=== PATIENT | female | born 1975 | race Caucasian/White ===

== ENCOUNTER 2017-01-19 16:56 | Emergency (ER) | payer BC ==
[2017-01-19] MEDS ORDERED: Ketorolac 60 MG/2 ML SDV IM ONE (17:10)
--- NOTE | 2017-01-19 17:43 | EDM.PDOC ---
ED HPI GENERAL MEDICAL PROBLEM - General Chief Complaint: Lower Extremity Injury/Pain Stated Complaint: PAIN RT FOOT/ TOE Time Seen by Provider: 01/19/17 17:00 Source of Information: Reports: Patient History Limitations: Reports: No Limitations - History of Present Illness INITIAL COMMENTS - FREE TEXT/NARRATIVE: History of present illness: [41-year-old female presenting with acute onset of trauma to right foot. Patient she slammed her right foot into a chair and subsequently had her fifth digit go lateral to her foot she's uncertain if she broke the pinky toe or actually further deeper into her foot and would like it evaluated. Patient indicates she is having a pain of 4 out of 10 and usually she walks around pain- free.] Review of systems: As per history of present illness and below otherwise all systems reviewed and negative. Past medical history: As per history of present illness and as reviewed below otherwise noncontributory. Surgical history: As per history of present illness and as reviewed below otherwise noncontributory. Social history: No reported history of drug or alcohol abuse. Family history: As per history of present illness and as reviewed below otherwise noncontributory. Physical exam: HEENT: Atraumatic, normocephalic, pupils reactive, negative for conjunctival pallor or scleral icterus, mucous membranes moist, throat clear, neck supple, nontender, trachea midline. Lungs: Clear to auscultation, breath sounds equal bilaterally, chest nontender. Heart: S1S2, regular, negative for clicks, rubs, or JVD. Abdomen: Soft, nondistended, nontender. Negative for masses or hepatosplenomegaly. Negative for costovertebral tenderness. Pelvis: Stable nontender. Genitourinary: Deferred. Rectal: Deferred. Extremities: Right foot with fifth digit slightly swollen and erythematous without deformity, negative for cords or calf pain. Neurovascular unremarkable. Neuro: Awake, alert, oriented. Cranial nerves II through XII unremarkable. Cerebellum unremarkable. Motor and sensory unremarkable throughout. Exam nonfocal. X-ray of the foot reflected: Slightly comminuted nondisplaced fracture of the mid to distal diaphysis of the proximal phalanx little toe. Questionable extension to the distal articular surface Diagnostics: [X-ray of right foot] Therapeutics: [] Impression: [Fractured fifth digit] Plan: [Walking boot follow-up with Ortho] Definitive disposition and diagnosis as appropriate pending reevaluation and review of above. right pinky toe Pain Score (Numeric/FACES): 4 - Related Data Allergies Allergy/AdvReac Type Severity Reaction Status Date / Time No Known Allergies Allergy Verified 01/19/17 17:06 Home Meds: Home Meds . 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 Neurological History: Reports: None Psychiatric History: Reports: None Endocrine/Metabolic History: Reports: Obesity/BMI 30+ Hematologic History: Reports: None Immunologic History: Reports: None Oncologic (Cancer) History: Reports: None Dermatologic History: Reports: None - Infectious Disease History Infectious Disease History: Reports: Chicken Pox - Past Surgical History Head Surgeries/Procedures: Reports: None Female Surgical History: Reports: D&C, Hysterectomy Musculoskeletal Surgical History: Reports: Other (See Below) Social & Family History - Family History Family Medical History: Noncontributory - Tobacco Use Smoking Status *Q: Never Smoker Second Hand Smoke Exposure: No - Caffeine Use Caffeine Use: Reports: Coffee Caffeine Use Comment: 3/day - Recreational Drug Use Recreational Drug Use: No Review of Systems - Review of Systems Review Of Systems: See Below (History of present illness) ED EXAM, GENERAL - Physical Exam Exam: See Below (The history of present illness) Course - Vital Signs Last Recorded V/S: Last Vital Signs Temp 36.6 C 01/19/17 17:06 Pulse 76 01/19/17 17:06 Resp 16 01/19/17 17:06 BP 131/86 01/19/17 17:06 Pulse Ox 98 01/19/17 17:06 - Orders/Labs/Meds Orders: Active Orders 24 hr Category Date Time Status Foot 2V Rt [CR] Stat Exams 01/19/17 17:09 Taken Meds: Medications Discontinued Medications Generic Name Dose Route Start Last Admin Trade Name Freq PRN Reason Stop Dose Admin Ketorolac Tromethamine 60 mg 01/19/17 17:10 01/19/17 17:17 Toradol IM 01/19/17 17:11 60 mg ONETIME ONE Administration Departure - Departure Time of Disposition: 18:10 Disposition: Home, Self-Care 01 Condition: Good Clinical Impression: Closed fracture of phalanx of foot - Discharge Information Forms: ED Department Discharge Additional Instructions: The following information is given to patients seen in the emergency department who are being discharged to home. This information is to outline your options for follow-up care. We provide all patients seen in our emergency department with a follow-up referral. The need for follow-up, as well as the timing and circumstances, are variable depending upon the specifics of your emergency department visit. If you don't have a primary care physician on staff, we will provide you with a referral. We always advise you to contact your personal physician following an emergency department visit to inform them of the circumstance of the visit and for follow-up with them and/or the need for any referrals to a consulting specialist. The emergency department will also refer you to a specialist when appropriate. This referral assures that you have the opportunity for follow-up care with a specialist. All of these measure are taken in an effort to provide you with optimal care, which includes your follow-up. Under all circumstances we always encourage you to contact your private physician who remains a resource for coordinating your care. When calling for follow-up care, please make the office aware that this follow-up is from your recent emergency room visit. If for any reason you are refused follow-up, please contact the [facility] at and asked to speak to the emergency department charge nurse. Where walking boot as instructed Follow-up with Ortho Evra as provided Follow-up with PCP 1-2 days Return to ED as needed as discussed [facility] [address] [place] [address], [address] [place] [address] - My Orders Last 24 Hours: My Active Orders 01/19/17 17:09 Foot 2V Rt [CR] Stat - Assessment/Plan Last 24 Hours: My Active Orders 01/19/17 17:09 Foot 2V Rt [CR] Stat
[2017-01-19 19:12] VITALS: BP 126/78
--- NOTE | 2017-01-20 08:39 | CR ---
EXAM DATE: 01/19/17 PATIENT'S AGE: 41 Patient: FUNMILAYO GAR Facility: [place], [place] Site . Site : 1975 Study: XRay Extremity Right ankle [id number] 5:32:23 PM Ordering Physician: Doctor Leon Final Report: HISTORY: Pain. FINDINGS: Two views of the right foot demonstrates a traction spur at the Achilles aspect of the calcaneus. There is a slightly comminuted nondisplaced fracture seen through the mid to distal diaphysis of the proximal phalanx of the little toe. It may extend to the distal articular surface. IMPRESSION: Slightly comminuted nondisplaced fracture of the mid to distal diaphysis of the proximal phalanx little toe. Questionable extension to the distal articular surface. Dictated by Kavita Leo MD @ 01/19/2017 6:04:09 PM Dictated by: Kavita Leo MD @ 01/19/2017 18:04:18 (Electronic Signature) Report Signed by Proxy. MELYSSA
== END 2017-01-19 18:37 | disposition home or self-care (01) ==
LOC: MW.ED 16:56
DX: S92.514A Nondisplaced fracture of proximal phalanx of right lesser toe(s), initial encounter for closed fracture (principal); E66.9 Obesity, unspecified; Z90.710 Acquired absence of both cervix and uterus; W22.8XXA Striking against or struck by other objects, initial encounter
CPT/HCPCS: 73620; 96372; 99283; J1885

== ENCOUNTER 2017-03-31 22:21 | Emergency (ER) | payer BC ==
--- NOTE | 2017-04-01 | EDM.PDOC ---
ED HPI GENERAL MEDICAL PROBLEM - General Chief Complaint: Skin Complaint Stated Complaint: PT HAS RASH Time Seen by Provider: 03/31/17 23:58 Source of Information: Reports: Patient - History of Present Illness INITIAL COMMENTS - FREE TEXT/NARRATIVE: HISTORY AND PHYSICAL: History of present illness: [Patient has red rash on extensor surfaces of elbows mildly on neck, appearance of very mild psoriasis maculopapular: Last seen the over flexural surface red raised there are some small dry scaly surfaces with silver sheen. 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 Past medical history: As per history of present illness and as reviewed below otherwise noncontributory. Surgical history: As per history of present illness and as reviewed below otherwise noncontributory. Social history: No reported history of drug or alcohol abuse. Family history: As per history of present illness and as reviewed below otherwise noncontributory. Physical exam: HEENT: Atraumatic, normocephalic, pupils reactive, negative for conjunctival pallor or scleral icterus, mucous membranes moist, throat clear, neck supple, nontender, trachea midline. Lungs: Clear to auscultation, breath sounds equal bilaterally, chest nontender. Heart: S1S2, regular, negative for clicks, rubs, or JVD. Abdomen: Soft, nondistended, nontender. Negative for masses or hepatosplenomegaly. Negative for costovertebral tenderness. Pelvis: Stable nontender. Genitourinary: Deferred. Rectal: Deferred. Extremities: Atraumatic, negative for cords or calf pain. Neurovascular unremarkable. Neuro: Awake, alert, oriented. Cranial nerves II through XII unremarkable. Cerebellum unremarkable. Motor and sensory unremarkable throughout. Exam nonfocal. Skin as per history of present illness otherwise unremarkable Diagnostics: Clinical Therapeutics: [Cortizone-10 ointment twice a day 10 days as needed ] Impression: [Psoriasis/eczema] Definitive disposition and diagnosis as appropriate pending reevaluation and review of above. skin shoulder arm Pain Score (Numeric/FACES): 3 - Related Data Allergies Allergy/AdvReac Type Severity Reaction Status Date / Time No Known Allergies Allergy Verified 03/31/17 22:28 Home Meds: Home Meds . 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 Neurological History: Reports: None Psychiatric History: Reports: None Endocrine/Metabolic History: Reports: Obesity/BMI 30+ Hematologic History: Reports: None Immunologic History: Reports: None Oncologic (Cancer) History: Reports: None Dermatologic History: Reports: None - Infectious Disease History Infectious Disease History: Reports: Chicken Pox, Shingles - Past Surgical History Head Surgeries/Procedures: Reports: None Female Surgical History: Reports: D&C, Hysterectomy Musculoskeletal Surgical History: Reports: Other (See Below) Other Musculoskeletal Surgeries/Procedures:: 2x right knee surger Social & Family History - Family History Family Medical History: Noncontributory - Tobacco Use Smoking Status *Q: Former Smoker Used Tobacco, but Quit: Yes Month Tobacco Last Used: 7 years ago Second Hand Smoke Exposure: No - Caffeine Use Caffeine Use: Reports: Coffee Caffeine Use Comment: 3/day - Recreational Drug Use Recreational Drug Use: No ED ROS GENERAL - Review of Systems Review Of Systems: ROS reveals no pertinent complaints other than HPI. ED EXAM, SKIN/RASH Exam: See Below Course - Vital Signs Last Recorded V/S: Last Vital Signs Temp 36.6 C 03/31/17 22:29 Pulse 71 03/31/17 22:29 Resp 17 03/31/17 22:29 BP 131/81 03/31/17 22:29 Pulse Ox 94 L 03/31/17 22:29 Departure - Departure Time of Disposition: 23:59 Disposition: Home, Self-Care 01 Condition: Good Clinical Impression: Psoriasis (a type of skin inflammation) - Discharge Information Referrals: PCP,None [Primary Care Provider] - Additional Instructions: Cortizone-10 or generic equivalent 2-3 times daily 10 days as needed Return if symptoms persist or worsen or new concerning symptoms develop Follow-up with primary care in 2 weeks sooner as needed The following information is given to patients seen in the emergency department who are being discharged to home. This information is to outline your options for follow-up care. We provide all patients seen in our emergency department with a follow-up referral. The need for follow-up, as well as the timing and circumstances, are variable depending upon the specifics of your emergency department visit. If you don't have a primary care physician on staff, we will provide you with a referral. We always advise you to contact your personal physician following an emergency department visit to inform them of the circumstance of the visit and for follow-up with them and/or the need for any referrals to a consulting specialist. The emergency department will also refer you to a specialist when appropriate. This referral assures that you have the opportunity for follow-up care with a specialist. All of these measure are taken in an effort to provide you with optimal care, which includes your follow-up. Under all circumstances we always encourage you to contact your private physician who remains a resource for coordinating your care. When calling for follow-up care, please make the office aware that this follow-up is from your recent emergency room visit. If for any reason you are refused follow-up, please contact the [facility] emergency department at and asked to speak to the emergency department charge nurse.
[2017-04-01 00:18] VITALS: BP 120/59
== END 2017-04-01 00:15 | disposition home or self-care (01) ==
LOC: MW.ED 22:21
DX: L40.9 Psoriasis, unspecified (principal); E66.9 Obesity, unspecified; Z87.891 Personal history of nicotine dependence; Z98.890 Other specified postprocedural states
CPT/HCPCS: 99281; 99282

== ENCOUNTER 2020-05-02 09:19 | Emergency (ER) | payer BC ==
[2020-05-02 09:51] VITALS: BP 123/70; PULSE 79
[2020-05-02] MEDS ORDERED: Ibuprofen 400 MG Tab PO ONE (09:54)
[2020-05-02] MEDS ORDERED: Ondansetron 4 MG Tab.DIS PO ONE (09:54)
[2020-05-02] MEDS ORDERED: Acetaminophen 500 MG Tab PO ONE (09:54)
--- NOTE | 2020-05-02 10:29 | EDM.PDOC ---
ED HPI GENERAL MEDICAL PROBLEM - General Chief Complaint: Head Injury Stated Complaint: HIT HEAD PRESSURE DIZZY Time Seen by Provider: 05/02/20 09:36 Source of Information: Reports: Patient, Old Records History Limitations: Reports: No Limitations - History of Present Illness INITIAL COMMENTS - FREE TEXT/NARRATIVE: This is a very pleasant 44-year-old female with a past medical history of psoriasis presenting with concern for head injury. 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 She did not lose consciousness and was able to walk back inside the house. However, within a few minutes she began developing left-sided headache along with some lightheadedness. Over the past several days, she has been developing a circumferential headache along with intermittent lightheadedness and nausea without vomiting. She also complains of some intermittent memory loss. She is concerned that she may have a concussion. She did go to the [facility] who immediately directed her to our emergency department. At present, she complains of some mild nausea and a headache. She is not on any anticoagulant or antiplatelet medication. She denies any vision changes, abnormal gait, extremity numbness or weakness, facial droop, chest pain, sh ortness of breath, or any other symptoms. ROS: A 10-point review of systems was negative, except as noted in the HPI (or in the ROS section of this note). Past medical history: Reviewed, no additional pertinent history. Surgical history: Reviewed in system, no additional pertinent history. Social history: Reviewed in system, no additional pertinent history. Family history: Reviewed in system, no additional pertinent history. PHYSICAL EXAM Vital signs reviewed. Nursing notes reviewed. Constitutional: Awake, alert, non-distressed. Head: Normocephalic, atraumatic. Eyes: EOMI, conjunctiva normal, no discharge, no scleral icterus. Pupils 3 mm bilaterally. Neck, supple, full range of motion. Ears, Nose, Throat: External ears and nose normal, moist oral mucosa. Cardiovascular: 2+ radial pulse, capillary refill less than 2 seconds. Pulmonary: normal work of breathing, no accessory muscle use. Abdomen/GI: Soft, nontender, nondistended, no guarding or rigidity, no masses. Musculoskeletal: No deformities. Integumentary: Appropriate color for ethnicity, warm, dry, no pallor or jaundice, no rash. Neurologic: Awake, alert, and oriented x3. Cranial nerves II through XII intact. No facial droop or dysarthria. No temporal artery tenderness. Supple neck with normal range of motion. Normal [id number]-[id number]-[id number] and [id number]-qwcx. No dysdiadochokinesia. 5/5 strength in all extremities. Sensation intact to light touch x4. Normal gait. Normal visual berry, no field cuts. Able to sit, stand, and ambulate without assistance. Psychiatric: Appropriate mood and affect, normal thought process. This patient was seen and evaluated during the 2019 SARS-CoV-2 novel coronavirus pandemic period. Community viral transmission is ongoing at time of this encounter and the emergency department is operating under pandemic response procedures. Head Pain Score (Numeric/FACES): 5 - Related Data Allergies Allergy/AdvReac Type Severity Reaction Status Date / Time No Known Allergies Allergy Verified 03/31/17 22:28 Home Meds: Home Meds Ondansetron [Zofran] 4 mg PO Q8H PRN #15 tab 05/02/20 [Rx] Past Medical History - Past Health History Medical/Surgical History: Denies Medical/Surgical History HEENT History: Reports: None Cardiovascular History: Reports: None Respiratory History: Reports: Sleep Apnea Gastrointestinal History: Reports: Colon Polyp Other Gastrointestinal History: occasional heartburn Genitourinary History: Reports: None Other Genitourinary History: on antibiotics for uti 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: , 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 Neurological History: Reports: None Psychiatric History: Reports: None Endocrine/Metabolic History: Reports: Obesity/BMI 30+ Hematologic History: Reports: None Immunologic History: Reports: None Oncologic (Cancer) History: Reports: None Dermatologic History: Reports: None - Infectious Disease History Infectious Disease History: Reports: Chicken Pox, Measles, Shingles - Past Surgical History Head Surgeries/Procedures: Reports: None GI Surgical History: Reports: Colonoscopy Female Surgical History: Reports: D&C, Hysterectomy Musculoskeletal Surgical History: Reports: Other (See Below) Other Musculoskeletal Surgeries/Procedures:: 2x right knee surger Social & Family History - Family History Family Medical History: No Pertinent Family History - Tobacco Use Tobacco Use Status *Q: Never Tobacco User - Caffeine Use Caffeine Use: Reports: None Caffeine Use Comment: 3/day - Recreational Drug Use Recreational Drug Use: No ED ROS GENERAL - Review of Systems Review Of Systems: See Below ED EXAM, NEURO - Physical Exam Exam: See Below Course - Vital Signs Text/Narrative:: Differential diagnosis includes but is not limited to: Postconcussive symptoms, intracranial hemorrhage, cerebral contusion, skull fracture, migraine, etc. 10:58 AM: I reviewed the head CT, I see no acute findings. We are waiting for radiology read. Given acetaminophen, ibuprofen, and Zofran. She is well- appearing, with no neurologic deficits, and her neck is supple. 11:38 AM: Head CT is unremarkable. I suspect the patient symptoms are mild postconcussive symptoms. No evidence of head trauma by physical exam. There is no evidence of a intracranial hemorrhage or other objective evidence of traumatic brain injury at this point. She is stable to discharge home with outpatient primary care follow-up. We discussed symptomatic treatment with Zofran for nausea and vomiting, acetaminophen and ibuprofen for headache, and close primary care follow-up. Plan: Patient is stable to discharge home with outpatient primary care clinic follow-up for postconcussive symptoms. Strict emergency department return precautions were provided, patient indicated understanding. All questions were answered prior to departure. Discharged in good condition. Last Recorded V/S: Last Vital Signs Temp 36.6 C 05/02/20 09:27 Pulse 79 05/02/20 09:27 Resp 16 05/02/20 09:27 BP 123/70 05/02/20 09:27 Pulse Ox 98 05/02/20 09:27 - Orders/Labs/Meds Meds: Medications Discontinued Medications Generic Name Dose Route Start Last Admin Trade Name Freq PRN Reason Stop Dose Admin Acetaminophen 1,000 mg 05/02/20 09:54 05/02/20 10:02 Tylenol Extra Strength PO 05/02/20 09:55 1,000 mg ONETIME ONE Administration Ibuprofen 400 mg 05/02/20 09:54 05/02/20 10:04 Motrin PO 05/02/20 09:55 400 mg ONETIME ONE Administration Ondansetron HCl 4 mg 05/02/20 09:54 05/02/20 10:02 Zofran Odt PO 05/02/20 09:55 4 mg ONETIME ONE Administration Departure - Departure Time of Disposition: 11:45 Disposition: Home, Self-Care 01 Condition: Good Clinical Impression: Post concussion syndrome - Discharge Information *PRESCRIPTION DRUG MONITORING PROGRAM REVIEWED*: Not Applicable *COPY OF PRESCRIPTION DRUG MONITORING REPORT IN PATIENT DONALD: Not Applicable Prescriptions: Ondansetron [Zofran] 4 mg PO Q8H PRN #15 tab PRN Reason: Nausea/Vomiting Instructions: Post-Concussion Syndrome Referrals: Fletcher Quinteros MD [Primary Care Provider] - 1 Week (For follow-up of symptoms.) Forms: ED Department Discharge Additional Instructions: You were seen in the emergency department for headache, nausea, vomiting, and lightheadedness after striking your head. Your neurologic testing is normal and your head CT is unremarkable. I believe that your symptoms are due to mild postconcussive syndrome. The initial treatment is [id number] acetaminophen and ibuprofen for headache. I am going to prescribe some Zofran for nausea and vomiting. I do want for you to follow-up with your primary doctor in the next few days for reevaluation if your symptoms do not improve. Warning signs to come back to the ER include: Worsening headache, persistent nausea or vomiting, or any other new or concerning symptoms. Please return the emergency department immediately if your symptoms worsen or if you feel worse. Thank you for choosing the [facility] emergency department in [place] for your medical needs today. It was a pleasure caring for you. The following information is given to patients seen in the emergency department who are being discharged. This information is to outline your options for follow-up care. We provide all patients seen in our emergency department with a follow-up referral. The need for follow-up, as well as the timing and circumstances, are variable depending upon the specifics of your emergency department visit. If you don't have a primary care physician on staff, we will provide you with a referral. We always advise you to contact your personal physician following an emergency department visit to inform them of the circumstance of the visit and for follow-up with them and/or the need for any referrals to a consulting specialist. The emergency department will also refer you to a specialist when appropriate. This referral assures that you have the opportunity for follow-up care with a sp ecialist. All of these measure are taken in an effort to provide you with optimal care, which includes your follow-up. Under all circumstances we always encourage you to contact your private physicia n who remains a resource for coordinating your care. When calling for follow-up care, please make the office aware that this follow-up is from your recent emergency room visit. If for any reason you are refused follow-up, please contact the [facility] Emergency Department at and asked to speak to the emergency department charge nurse. If you do not have a primary care physician that is caring for you, you can contact these clinics below to set up an appointment to establish care: [facility] [address] [place] [id number] [facility] [address] [place] [id number] Sepsis Event Note (ED) - Evaluation Sepsis Screening Result: No Definite Risk - Focused Exam Vital Signs: Vital Signs Temp Pulse Resp BP Pulse Ox 05/02/20 09:27 36.6 C 79 16 123/70 98
--- NOTE | 2020-05-02 11:25 | CT ---
INDICATION: Blunt head injury TECHNIQUE: CT head without contrast. COMPARISON: June 30, 2016 FINDINGS: CSF spaces: Within normal limits for age. Brain parenchyma and extra-axial spaces: The nair-white differentiation is normal. No sign of mass, hemorrhage, or midline shift. No extra-axial fluid collection. Skull base and calvarium: The visualized paranasal sinuses and mastoid air cells demonstrate no acute or significant findings. The visualized orbits are grossly unremarkable. No skull fractures. IMPRESSION: Unremarkable noncontrast head CT. No sign of injury. Please note that all CT scans at this facility use dose modulation, iterative reconstruction, and/or weight-based dosing when appropriate to reduce radiation dose to as low as reasonably achievable. Dictated by Ander Gresham MD @ May 02 2020 11:20AM Signed by Dr. Ander Gresham @ May 02 2020 11:23AM
== END 2020-05-02 13:00 | disposition home or self-care (01) ==
LOC: MW.ED 09:19
DX: F07.81 Postconcussional syndrome (principal); E66.9 Obesity, unspecified; Z68.29 Body mass index [BMI] 29.0-29.9, adult
CPT/HCPCS: 70450; 99283; A9270